=== PATIENT | male | born 1985 | race African-American/Black ===

== ENCOUNTER 2017-02-16 15:22 | Emergency (ER) | payer SELFPAY ==
[~2017-02-16] VITALS: Ht 188 cm; Wt 77.0 kg
[2017-02-16 15:34] VITALS: BP 114/66
== END 2017-02-16 21:26 | disposition left against medical advice (07) ==
LOC: ER 20:58
DX: Z53.21 Procedure and treatment not carried out due to patient leaving prior to being seen by health care provider (principal)

== ENCOUNTER 2017-03-02 07:49 | Emergency (ER) | payer SELFPAY ==
[~2017-03-02] VITALS: Ht 188 cm; Wt 73.0 kg
[2017-03-02 08:13] VITALS: BP 108/63
== END 2017-03-02 10:04 | disposition home or self-care (01) ==
LOC: ER 09:06
DX: R10.9 Unspecified abdominal pain (principal); R63.0 Anorexia; Z56.89 Other problems related to employment
CPT/HCPCS: 99281